=== PATIENT | male | born 1930 | race Caucasian/White ===

== ENCOUNTER → 2017-11-02 | Outpatient (CLI) | payer OTHER ==
[2015-12-19 03:03] VITALS: BP 157/72
[2017-11-02 19:25] LABS: BASOPHILS % (AUTO) 0.7 % (0.2-1.0); EOSINOPHILS % (AUTO) 1.2 % (0.9-2.9); HEMATOCRIT 23.2 % (42.0-54.0); HEMOGLOBIN 8.3 g/dL (13.5-18.0); LYMPHOCYTES % (AUTO) 54.3 % (21.0-51.0); MEAN CORPUSCULAR HEMOGLOBIN 34.7 pg (27.0-34.0); MEAN CORPUSCULAR HGB CONC 35.8 g/dL (33.0-35.0); MEAN CORPUSCULAR VOLUME 96.9 fL (80.0-100.0); MEAN PLATELET VOLUME 8.1 fL (7.4-11.0); MONOCYTES # (AUTO) 0.1 x10^3/uL (0.3-0.8); MONOCYTES % (AUTO) 5.1 % (0.0-13.0); NEUTROPHILS # (AUTO) 0.7 x10^3/uL (2.2-4.8); NEUTROPHILS % (AUTO) 38.7 % (42.0-75.0); PLATELET COUNT 37 X10^3/uL (150.0-450.0); RED CELL DISTRIBUTION WIDTH 15.8 % (11.6-16.5)
[2017-11-02 19:28] LABS: WHITE BLOOD COUNT 1.9 X10^3/uL (3.6-10.0)
[2017-11-02 20:17] LABS: BURR CELLS PRESENT; HYPOCHROMASIA SLIGHT; PLATELET MORPHOLOGY COMMENT NORMAL (NORMAL)
== END ==
LOC: LAB 18:05
PROVIDERS: ATTEND Internal Medicine Medical Oncology
DX: D46.9 Myelodysplastic syndrome, unspecified (principal)
CPT/HCPCS: 36415; 85025

== ENCOUNTER → 2017-11-20 | Outpatient (CLI) | payer OTHER ==
[2015-12-19 03:03] VITALS: BP 157/72
[2017-11-20 13:00] LABS: BASOPHILS % (AUTO) 0.6 % (0.2-1.0); EOSINOPHILS % (AUTO) 0.6 % (0.9-2.9); LYMPHOCYTES # (AUTO) 0.6 X10^3/uL (1.3-2.9); LYMPHOCYTES % (AUTO) 59.5 % (21.0-51.0); MEAN CORPUSCULAR HEMOGLOBIN 32.8 pg (27.0-34.0); MEAN CORPUSCULAR HGB CONC 35.9 g/dL (33.0-35.0); MEAN CORPUSCULAR VOLUME 91.4 fL (80.0-100.0); MEAN PLATELET VOLUME 8.1 fL (7.4-11.0); MONOCYTES # (AUTO) 0.1 x10^3/uL (0.3-0.8); MONOCYTES % (AUTO) 5.4 % (0.0-13.0); NEUTROPHILS # (AUTO) 0.4 x10^3/uL (2.2-4.8); NEUTROPHILS % (AUTO) 33.9 % (42.0-75.0); PLATELET COUNT 23 X10^3/uL (150.0-450.0); RED BLOOD COUNT 2.13 X10^6/uL (4.7-6.0); RED CELL DISTRIBUTION WIDTH 17.2 % (11.6-16.5)
[2017-11-20 13:09] LABS: ALANINE AMINOTRANSFERASE 16 Units/L (12-78); ALBUMIN 3.3 g/dL (3.4-5.0); ALKALINE PHOSPHATASE 122 Units/L (46-116); ASPARTATE AMINO TRANSFERASE 12 Units/L (15-37); BLOOD UREA NITROGEN 23 mg/dL (7-18); CALCIUM 8.3 mg/dL (8.5-10.1); CARBON DIOXIDE 25.4 mmol/L (21-32); CHLORIDE 106 mmol/L (98-107); COR CA(FOR HYPOALB) 8.9 mg/dL (8.5-10.1); CREATININE 1.33 mg/dL (0.70-1.30); SODIUM 135 mmol/L (136-145); TOTAL PROTEIN 6.9 g/dL (6.4-8.2); eGFR BLACK RACES > 60 (>60); eGFR NON BLACK RACES 54 (>60)
[2017-11-20 13:51] LABS: HEMATOCRIT 19.5 % (42.0-54.0)
[2017-11-20 13:52] LABS: ANISOCYTOSIS 1+; HYPOCHROMASIA 1+; PLATELET MORPHOLOGY COMMENT NORMAL (NORMAL)
== END ==
LOC: LAB 12:28
PROVIDERS: ATTEND Internal Medicine Medical Oncology
DX: D46.9 Myelodysplastic syndrome, unspecified (principal)
CPT/HCPCS: 36415; 80053; 85025

== ENCOUNTER → 2017-11-23 | Outpatient (CLI) | payer OTHER ==
[2015-12-19 03:03] VITALS: BP 157/72
[2017-11-23 10:18] LABS: BASOPHILS % (AUTO) 0.3 % (0.2-1.0); EOSINOPHILS % (AUTO) 0.7 % (0.9-2.9); LYMPHOCYTES # (AUTO) 0.5 X10^3/uL (1.3-2.9); LYMPHOCYTES % (AUTO) 61.1 % (21.0-51.0); MEAN CORPUSCULAR HEMOGLOBIN 33.1 pg (27.0-34.0); MEAN CORPUSCULAR HGB CONC 36.1 g/dL (33.0-35.0); MEAN CORPUSCULAR VOLUME 91.6 fL (80.0-100.0); MONOCYTES # (AUTO) 0.1 x10^3/uL (0.3-0.8); MONOCYTES % (AUTO) 8.1 % (0.0-13.0); NEUTROPHILS # (AUTO) 0.2 x10^3/uL (2.2-4.8); NEUTROPHILS % (AUTO) 29.8 % (42.0-75.0); RED BLOOD COUNT 1.94 X10^6/uL (4.7-6.0); RED CELL DISTRIBUTION WIDTH 16.7 % (11.6-16.5)
[2017-11-23 10:37] LABS: HEMOGLOBIN 6.4 g/dL (13.5-18.0); WHITE BLOOD COUNT 0.8 X10^3/uL (3.6-10.0)
[2017-11-23 10:38] LABS: HEMATOCRIT 17.7 % (42.0-54.0)
[2017-11-23 10:39] LABS: PLATELET COUNT 14 X10^3/uL (150.0-450.0)
[2017-11-23 10:40] LABS: HYPOCHROMASIA 1+; PLATELET MORPHOLOGY COMMENT NORMAL (NORMAL)
== END ==
LOC: LAB 09:43
PROVIDERS: ATTEND Internal Medicine Medical Oncology
DX: D46.9 Myelodysplastic syndrome, unspecified (principal)
CPT/HCPCS: 36415; 85025

== ENCOUNTER → 2017-11-27 | Outpatient (CLI) | payer OTHER ==
[2015-12-19 03:03] VITALS: BP 157/72
[2017-11-27 10:09] LABS: ALANINE AMINOTRANSFERASE 12 Units/L (12-78); ALBUMIN 3.2 g/dL (3.4-5.0); ALKALINE PHOSPHATASE 121 Units/L (46-116); ASPARTATE AMINO TRANSFERASE 7 Units/L (15-37); BLOOD UREA NITROGEN 25 mg/dL (7-18); CALCIUM 8.1 mg/dL (8.5-10.1); CHLORIDE 107 mmol/L (98-107); COR CA(FOR HYPOALB) 8.7 mg/dL (8.5-10.1); COR NA(FOR HYPERGLY) 140 mmol/L (136-145); CREATININE 1.33 mg/dL (0.70-1.30); SODIUM 140 mmol/L (136-145); TOTAL PROTEIN 6.7 g/dL (6.4-8.2); eGFR BLACK RACES > 60 (>60); eGFR NON BLACK RACES 54 (>60)
[2017-11-27 10:10] LABS: BASOPHILS % (AUTO) 0.4 % (0.2-1.0); HEMATOCRIT 21.7 % (42.0-54.0); HEMOGLOBIN 7.8 g/dL (13.5-18.0); LYMPHOCYTES # (AUTO) 0.5 X10^3/uL (1.3-2.9); LYMPHOCYTES % (AUTO) 67.1 % (21.0-51.0); MEAN CORPUSCULAR HGB CONC 35.7 g/dL (33.0-35.0); MEAN CORPUSCULAR VOLUME 89.5 fL (80.0-100.0); MEAN PLATELET VOLUME 8.6 fL (7.4-11.0); MONOCYTES # (AUTO) 0 x10^3/uL (0.3-0.8); MONOCYTES % (AUTO) 6.4 % (0.0-13.0); NEUTROPHILS # (AUTO) 0.2 x10^3/uL (2.2-4.8); NEUTROPHILS % (AUTO) 25.1 % (42.0-75.0); RED BLOOD COUNT 2.43 X10^6/uL (4.7-6.0); RED CELL DISTRIBUTION WIDTH 17.2 % (11.6-16.5)
[2017-11-27 10:25] LABS: WHITE BLOOD COUNT 0.8 X10^3/uL (3.6-10.0)
[2017-11-27 10:26] LABS: PLATELET COUNT 16 X10^3/uL (150.0-450.0)
[2017-11-27 10:41] LABS: HYPOCHROMASIA 1+; PLATELET MORPHOLOGY COMMENT NORMAL (NORMAL)
== END ==
LOC: LAB 09:28
PROVIDERS: ATTEND Internal Medicine Medical Oncology
DX: D46.9 Myelodysplastic syndrome, unspecified (principal)
CPT/HCPCS: 36415; 80053; 85025

== ENCOUNTER → 2018-01-18 | Outpatient (CLI) | payer OTHER ==
[2015-12-19 03:03] VITALS: BP 157/72
[2018-01-18 12:48] LABS: BASOPHILS % (AUTO) 1.1 % (0.2-1.0); EOSINOPHILS % (AUTO) 1.8 % (0.9-2.9); HEMATOCRIT 23.3 % (42.0-54.0); HEMOGLOBIN 8.2 g/dL (13.5-18.0); LYMPHOCYTES % (AUTO) 75.6 % (21.0-51.0); MEAN CORPUSCULAR HEMOGLOBIN 28.5 pg (27.0-34.0); MEAN CORPUSCULAR HGB CONC 35.2 g/dL (33.0-35.0); MONOCYTES # (AUTO) 0 x10^3/uL (0.3-0.8); MONOCYTES % (AUTO) 2.3 % (0.0-13.0); NEUTROPHILS # (AUTO) 0.2 x10^3/uL (2.2-4.8); NEUTROPHILS % (AUTO) 19.2 % (42.0-75.0); PLATELET COUNT 38 X10^3/uL (150.0-450.0); RED BLOOD COUNT 2.88 X10^6/uL (4.7-6.0); RED CELL DISTRIBUTION WIDTH 18.8 % (11.6-16.5)
[2018-01-18 13:02] LABS: ALANINE AMINOTRANSFERASE 17 Units/L (12-78); ALBUMIN 3.3 g/dL (3.4-5.0); ALKALINE PHOSPHATASE 135 Units/L (46-116); ASPARTATE AMINO TRANSFERASE 9 Units/L (15-37); BLOOD UREA NITROGEN 26 mg/dL (7-18); CALCIUM 8.5 mg/dL (8.5-10.1); CARBON DIOXIDE 27.5 mmol/L (21-32); CHLORIDE 105 mmol/L (98-107); COR CA(FOR HYPOALB) 9.1 mg/dL (8.5-10.1); CREATININE 1.26 mg/dL (0.70-1.30); SODIUM 141 mmol/L (136-145); TOTAL PROTEIN 7.2 g/dL (6.4-8.2); eGFR BLACK RACES > 60 (>60); eGFR NON BLACK RACES 58 (>60)
[2018-01-18 13:03] LABS: WHITE BLOOD COUNT 1.3 X10^3/uL (3.6-10.0)
[2018-01-18 13:23] LABS: ANISOCYTOSIS 1+; HYPOCHROMASIA 3+; PLATELET MORPHOLOGY COMMENT NORMAL (NORMAL)
== END ==
LOC: LAB 12:27
PROVIDERS: ATTEND Internal Medicine Hematology & Oncology
DX: D46.9 Myelodysplastic syndrome, unspecified (principal)
CPT/HCPCS: 36415; 80053; 85025

== ENCOUNTER 2018-10-28 21:14 | Inpatient (IN) ==
[2018-10-28] MEDS ORDERED: TESSALON PERLES PO PRN (22:03)
[2018-10-28 22:56] LABS: BASOPHILS % (AUTO) 0.4 % (0.2-1.0); EOSINOPHILS % (AUTO) 0.1 % (0.9-2.9); LYMPHOCYTES # (AUTO) 0.6 X10^3/uL (1.3-2.9); LYMPHOCYTES % (AUTO) 46.6 % (21.0-51.0); MEAN CORPUSCULAR HEMOGLOBIN 30.7 pg (27.0-34.0); MEAN CORPUSCULAR HGB CONC 35.2 g/dL (33.0-35.0); MEAN CORPUSCULAR VOLUME 87.1 fL (80.0-100.0); MEAN PLATELET VOLUME 10.1 fL (7.4-11.0); MONOCYTES # (AUTO) 0.5 x10^3/uL (0.3-0.8); MONOCYTES % (AUTO) 37.5 % (0.0-13.0); NEUTROPHILS # (AUTO) 0.2 x10^3/uL (2.2-4.8); NEUTROPHILS % (AUTO) 15.4 % (42.0-75.0); RED BLOOD COUNT 2.13 X10^6/uL (4.7-6.0); RED CELL DISTRIBUTION WIDTH 15.5 % (11.6-16.5)
[2018-10-28] MEDS ORDERED: LEVAQUIN TAB 500 MG PO SCH (23:00)
[2018-10-28 23:11] LABS: WHITE BLOOD COUNT 1.2 X10^3/uL (3.6-10.0)
[2018-10-28 23:12] LABS: HEMATOCRIT 18.6 % (42.0-54.0); HEMOGLOBIN 6.5 g/dL (13.5-18.0)
[2018-10-28 23:13] LABS: PLATELET COUNT 8 X10^3/uL (150.0-450.0)
[2018-10-28 23:23] LABS: CALCIUM 7.7 mg/dL (8.5-10.1); CREATININE 2.39 mg/dL (0.70-1.30)
[2018-10-29] MEDS: LIPITOR TAB 40 MG PO SCH ×2 (00:10→21:52)
[2018-10-29] MEDS: PATIENT'S HOME MEDICATION PO SCH ×2 (00:10→21:53)
[2018-10-29] MEDS: K-DUR TAB 20 MEQ PO SCH ×3 (00:10→21:47)
[2018-10-29 01:16] LABS: ALBUMIN 2.2 g/dL (3.4-5.0); COR CA(FOR HYPOALB) 9.1 mg/dL (8.5-10.1); TOTAL PROTEIN 7.2 g/dL (6.4-8.2)
[2018-10-29] MEDS ORDERED: TYLENOL 325 MG TAB PO ONE (02:01)
[2018-10-29] MEDS: TYLENOL 325 MG TAB PO PRN ×3 (02:09→23:29)
[2018-10-29] MEDS ORDERED: NS 250 ML IV 250 ML IV ONE ×2 (02:47→08:24)
[2018-10-29 03:00] LABS: BAND NEUTROPHILS % 1 % (0-10)
[2018-10-29 03:01] LABS: PLATELET MORPHOLOGY COMMENT NORMAL (NORMAL)
[2018-10-29 03:04] LABS: HYPOCHROMASIA 1+
[2018-10-29] MEDS: TAB-A-VITE PO SCH (08:13)
[2018-10-29] MEDS: TOPROL XL PO SCH (08:13)
[2018-10-29] MEDS: PROTONIX INJ 40 MG VIAL IVP SCH (08:13)
[2018-10-29] MEDS ORDERED: PATIENT'S HOME MEDICATION PO SCH (09:00)
[2018-10-29] MEDS ORDERED: LASIX IVP ONE (11:31)
[2018-10-29] MEDS: ALBUMIN HUMAN 25%- 100 ML 100 ML IV SCH (12:10)
[2018-10-29 12:27] LABS: LYMPHOCYTES # (AUTO) 0.3 X10^3/uL (1.3-2.9); NEUTROPHILS # (AUTO) 0.2 x10^3/uL (2.2-4.8)
[2018-10-29 12:33] LABS: BASOPHILS % (AUTO) 0.5 % (0.2-1.0); EOSINOPHILS % (AUTO) 0.3 % (0.9-2.9); HEMATOCRIT 22.7 % (42.0-54.0); LYMPHOCYTES % (AUTO) 30.9 % (21.0-51.0); MEAN CORPUSCULAR HEMOGLOBIN 30.7 pg (27.0-34.0); MEAN CORPUSCULAR HGB CONC 35.2 g/dL (33.0-35.0); MEAN CORPUSCULAR VOLUME 87.3 fL (80.0-100.0); MEAN PLATELET VOLUME 11.5 fL (7.4-11.0); MONOCYTES # (AUTO) 0.5 x10^3/uL (0.3-0.8); MONOCYTES % (AUTO) 49.2 % (0.0-13.0); NEUTROPHILS % (AUTO) 19.1 % (42.0-75.0); RED CELL DISTRIBUTION WIDTH 15.7 % (11.6-16.5)
[2018-10-29 12:35] LABS: PLATELET COUNT 2 X10^3/uL (150.0-450.0); WHITE BLOOD COUNT 1.1 X10^3/uL (3.6-10.0)
[2018-10-29 12:40] LABS: CALCIUM 8.1 mg/dL (8.5-10.1); CARBON DIOXIDE 22.7 mmol/L (21-32); COR CA(FOR HYPOALB) 9.7 mg/dL (8.5-10.1); CREATININE 2.18 mg/dL (0.70-1.30); TOTAL PROTEIN 6.7 g/dL (6.4-8.2)
[2018-10-29] MEDS ORDERED: PHARMACY CONSULT - TPN XX SCH (13:00)
[2018-10-29] MEDS ORDERED: DEXTROSE 10% 1,000 ML IV PRN (15:05)
[2018-10-29 15:25] LABS: PHOSPHORUS 2.8 mg/dL (2.6-4.7)
[2018-10-29] MEDS: CLINIMIX 4.25 %/10 % 1,000 ML with MVI INJ (ADULT) 10 ML, TRACE ELEMENTS INJ 10 ML, DRU... IV SCH ×3 (16:04)
[2018-10-29] MEDS: MAGNESIUM SULFATE 1 GRAM/100 mL PREMIX 1 GM/100 ML BAG IV PRN ×3 (16:12→17:57)
--- NOTE | 2018-10-29 19:06 | DR.H&P ---
H&P - History & Physical for Day of: H&P Date: 10/28/18 - Chief Complaint Chief Complaint: WEAKNESS, ANOREXIA - History of Present Illness History of Present Illness: IS A 88 YEAR OLD PATIENT OF OURS. HE PRESENTS TO THE HOSPITAL A DIRECT ADMISSION TO THE HOSPITAL FOR PANCYTOPENIA, WEAKNESS, AND ANOREXIA. PATIENTS SPOUSE REPORTS THAT HE IS GETTING WEAKER AND IS UNABLE TO WALK DUE TO WEAKNESS. SHE REPORTS THAT HE HAS HAD GENERALIZED SWELLING AND IS UNABLE TO EAT OR DRINK ANYTHING FOR THE PAST TWO DAYS. 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 ON ARRIVAL, VITALS WERE 100.0-96-27-94%-141/64. LABS WERE OBTAINED. ABNORMAL LAB VALUES INCLUDE THE FOLLOWING: WBC 1.2, RBC 2.13, HGB 6.5, HCT 18.6, PLT COUNT 8, BUN 77, CREATININE 2.39, GLUCOSE 126, CALCIUM 7.7, AST 74, ALT 79, ALK PHOS 159, ALBUMIN 2.2, GLOBULIN 5.0. WE PLAN TO TRANSFUSE TWO UNITS OF PACKED RED BLOOD CELLS. OTHERWISE, WE WILL CONTINUE HIS HOME MEDICATIONS AND CURRENT PLAN OF CARE. WE WILL FOLLOW UP WITH AM LABS AND CONTINUE TO MONITOR. - Past Medical History Past Medical History: Dyslipidemia, GERD, Hypertension, CO Additional Medical History: LEUKEMIA, BLADDER CANCER - Past Surgical History Surgical History: Angioplasty/Stents, Ortho Surgery - Family History Family Medical History: Cancer, CO, Hypertension - Social History Does patient currently use any type of tobacco product: No Have you used tobacco products in the last 12 months: No Type of Tobacco Use: None Does any household member use tobacco: No Alcohol Use: None Drug Use: None - Medications Home Medications: No Known Drug Allergies [NKDA] Allergy (Verified 12/01/17 10:33) CONTINUE taking the following medications levofloxacin 500 mg PO DAILY 10/28/18 [History] olmesartan 5 mg PO HS 10/28/18 [History] pantoprazole 40 mg PO DAILY 10/28/18 [History] potassium chloride 20 meq PO BID 10/28/18 [History] - Review of Systems Constitutional: See HPI, Weakness, Other (DECREASED APPETITE ) Eyes: No Symptoms Reported ENT: No Symptoms Reported Respiratory: No Symptoms Reported Cardiovascular: Edema (GENERALIZED SWELLING ) Gastrointestinal: No Symptoms Reported Genitourinary: No Symptoms Reported Musculoskeletal: See HPI Skin: No Symptoms Reported Neurological: See HPI, Weakness - Physical Exam Vital Signs: Temperature 98.3 F Pulse Rate [Left Radial] 107 Pulse Rate 93 Respiratory Rate 30 Blood Pressure [Left Arm] 122/56 Blood Pressure [Right Arm] 148/65 Blood Pressure 125/60 O2 Sat by Pulse Oximetry 96 Oriented: Normal Eyes: Normal Ear: Normal Nose: Normal Throat: Normal Respiratory: Diminished Throughout Cardiovascular: Normal : Normal Auscultation: Bowel Sounds: Normal Palpation: Normal Tenderness: Normal Skin: Decreased Turgur, Bruising Musculoskeletal: Normal Psychiatric: Normal Mood Description: Calm Affect: Normal Speech Pattern: Clear - Assessment/Plan (1) Pancytopenia Status: Acute Plan: TRANSFUSE 2 UNITS PRBC, CONTINUE TO MONITOR (2) Anemia Qualifiers: Anemia type: unspecified type Qualified Code(s): D64.9 - Anemia, unspecified Status: Acute Plan: TRANSFUSE 2 UNITS PRBC, CONTINUE TO MONITOR (3) Weakness Status: Acute (4) Anorexia Status: Acute - Allergies Allergies/Adverse Reactions: Allergies Allergy/AdvReac Type Severity Reaction Status Date / Time No Known Drug Allergies Allergy Verified 12/01/17 10:33 [NKDA]
[2018-10-29] MEDS: HumuLIN R SUBCUT PRN (19:37)
[2018-10-29] MEDS ORDERED: NS 50 ML IV 0 ML IV ONE (19:53)
[2018-10-29] MEDS ORDERED: NS 100 ML IV 100 ML IV ONE (21:01)
[2018-10-29] MEDS: LEVAQUIN TAB 250 MG PO SCH (21:52)
[2018-10-29] MEDS ORDERED: RESTORIL CAP 15 MG PO PRN (22:56)
[2018-10-30 00:17] LABS: HEMOGLOBIN 7.4 g/dL (13.5-18.0)
[2018-10-30 00:26] LABS: HEMATOCRIT 20.9 % (42.0-54.0)
[2018-10-30] MEDS: CLINIMIX 4.25 %/10 % 1,000 ML with MVI INJ (ADULT) 10 ML, TRACE ELEMENTS INJ 10 ML, DRU... IV SCH ×6 (03:22→16:08)
[2018-10-30 06:13] LABS: PREALBUMIN 9.7 mg/dL (18-35.7)
[2018-10-30 06:16] LABS: BASOPHILS % (AUTO) 0.2 % (0.2-1.0); EOSINOPHILS % (AUTO) 0.3 % (0.9-2.9); HEMATOCRIT 23.8 % (42.0-54.0); HEMOGLOBIN 8.3 g/dL (13.5-18.0); LYMPHOCYTES # (AUTO) 0.4 X10^3/uL (1.3-2.9); LYMPHOCYTES % (AUTO) 25.4 % (21.0-51.0); MEAN CORPUSCULAR HEMOGLOBIN 30.7 pg (27.0-34.0); MEAN CORPUSCULAR VOLUME 87.8 fL (80.0-100.0); MEAN PLATELET VOLUME 9.1 fL (7.4-11.0); MONOCYTES # (AUTO) 1.1 x10^3/uL (0.3-0.8); MONOCYTES % (AUTO) 67.8 % (0.0-13.0); NEUTROPHILS # (AUTO) 0.1 x10^3/uL (2.2-4.8); NEUTROPHILS % (AUTO) 6.3 % (42.0-75.0); PLATELET COUNT 36 X10^3/uL (150.0-450.0); RED BLOOD COUNT 2.71 X10^6/uL (4.7-6.0); RED CELL DISTRIBUTION WIDTH 15.7 % (11.6-16.5)
[2018-10-30 06:18] LABS: ALBUMIN 2.3 g/dL (3.4-5.0); CALCIUM 8.2 mg/dL (8.5-10.1); CARBON DIOXIDE 25.8 mmol/L (21-32); COR CA(FOR HYPOALB) 9.6 mg/dL (8.5-10.1); CREATININE 2.02 mg/dL (0.70-1.30); MAGNESIUM 1.6 mg/dL (1.7-2.9)
[2018-10-30 06:28] LABS: WHITE BLOOD COUNT 1.6 X10^3/uL (3.6-10.0)
[2018-10-30 07:00] LABS: BAND NEUTROPHILS % 12 % (0-10)
[2018-10-30 07:02] LABS: PLATELET MORPHOLOGY COMMENT NORMAL (NORMAL)
[2018-10-30 07:04] LABS: HYPOCHROMASIA SLIGHT
[2018-10-30 07:05] LABS: ANISOCYTOSIS 1+
[2018-10-30] MEDS: TOPROL XL PO SCH (08:13)
[2018-10-30] MEDS: TAB-A-VITE PO SCH (08:13)
[2018-10-30] MEDS: K-DUR TAB 20 MEQ PO SCH ×2 (08:14→21:02)
[2018-10-30] MEDS: TYLENOL 325 MG TAB PO PRN ×4 (08:25→17:35)
[2018-10-30] MEDS: ALBUMIN HUMAN 25%- 100 ML 100 ML IV SCH (08:27)
[2018-10-30] MEDS: PROTONIX INJ 40 MG VIAL IVP SCH (08:27)
--- NOTE | 2018-10-30 08:33 | PCM.PROG ---
Progress Note - Progress Note for Day of Date of Exam: 10/29/18 - Subjective Subjective: WAS ADMITTED FOR PANCYTOPENIA, GENERALIZED WEAKNESS, ANOREXIA, AND ANEMIA. TODAY, HE IS ALERT AND ORIENTED, LYING IN BED ON MORNING ROUNDS. HE CONTINUES WITH GENERALIZED WEAKNESS AND DECREASED APPETITE. HE HAS A HISTORY OF BLADDER CANCER AND LEUKEMIA. HE IS CURRENTLY RECEIVING HIS 2ND UNIT OF PACKED RED BLOOD CELLS. HIS VITALS THIS MORNING ARE 98.7-24-99-94%-148/65. LABS WERE OBTAINED. ABNORMAL LAB VALUES INCLUDE THE FOLLOWING: WBC 1.1, RBC 2.60, HGB 8.0, HCT 22.7, PLT COUNT 2, BUN 70, CREATININE 2.18, GLUCOSE 155, CALCIUM 8.1, MAGNESIUM 1.0, TOTAL PROTEIN 1.20, AST 42, ALK PHOS 147, ALBUMIN 2.0, GLOBULIN 4.7. WE WILL GIVE HIM LASIX 20MG IV X 1 DOSE AFTER THIS UNIT OF BLOOD. WE WILL THEN TRANSFUSE HIM WITH TWO SUPERPACKS OF PLATELETS. WE WILL ALSO START TPN AND ALBUMIN 25% IV DAILY. WE WILL MONITOR HIS HEMOGLOBIN AND HEMATOCRIT. OTHERWISE, WE WILL FOLLOW UP WITH AM LABS AND CONTINUE TO MONITOR. - Past Medical Family Social History Past Med/Fam/Surg Hx: No changes since H&P Allergies: Allergies No Known Drug Allergies [NKDA] Allergy (Verified 12/01/17 10:33) - Review of Systems ROS: No change since H&P - Vital Signs and I&O's Vital Signs: Temperature 98.2 F Pulse Rate [Left Radial] 113 Pulse Rate 93 Respiratory Rate 38 Blood Pressure [Left Arm] 140/74 Blood Pressure [Right Arm] 151/67 Blood Pressure 125/60 O2 Sat by Pulse Oximetry 95 Intake and Output: Intake & Output 10/27/18 10/28/18 10/29/18 10/30/18 11:59 11:59 11:59 11:59 Intake Total 907 / 907 2320 / 2320 Output Total 650 / 650 1850 / 1850 Balance 257 / 257 470 / 470 - Physical Exam Oriented: Normal Eyes: Normal Ear: Normal Nose: Normal Throat: Normal Cardiovascular: Normal : Normal Auscultation: Bowel Sounds: Normal Palpation: Normal Tenderness: Normal Skin: Decreased Turgur, Bruising Musculoskeletal: Normal Psychiatric: Normal Mood Description: Calm Affect: Normal Speech Pattern: Clear - Laboratory and Diagnostics Result Diagrams: 10/30/18 05:35 10/30/18 05:35 Labs: Laboratory WBC 1.6 X10^3/uL (3.6-10.0) L* 10/30/18 05:35 RBC 2.71 X10^6/uL (4.7-6.0) L 10/30/18 05:35 Hgb 8.3 g/dL (13.5-18.0) L 10/30/18 05:35 Hct 23.8 % (42.0-54.0) L 10/30/18 05:35 MCV 87.8 fL (80.0-100.0) 10/30/18 05:35 MCH 30.7 pg (27.0-34.0) 10/30/18 05:35 MCHC 35.0 g/dL (33.0-35.0) 10/30/18 05:35 RDW 15.7 % (11.6-16.5) 10/30/18 05:35 Plt Count 36 X10^3/uL (150.0-450.0) L 10/30/18 05:35 Plt Count Comment Decreased (ADEQUATE) 10/30/18 05:35 MPV 9.1 fL (7.4-11.0) 10/30/18 05:35 Neut % (Auto) 6.3 % (42.0-75.0) L 10/30/18 05:35 Lymph % (Auto) 25.4 % (21.0-51.0) 10/30/18 05:35 [place] % (Auto) 67.8 % (0.0-13.0) H 10/30/18 05:35 Eos % (Auto) 0.3 % (0.9-2.9) L 10/30/18 05:35 Baso % (Auto) 0.2 % (0.2-1.0) 10/30/18 05:35 Neut # (Auto) 0.1 x10^3/uL (2.2-4.8) L 10/30/18 05:35 Lymph # (Auto) 0.4 X10^3/uL (1.3-2.9) L 10/30/18 05:35 [place] # (Auto) 1.1 x10^3/uL (0.3-0.8) H 10/30/18 05:35 Eos # (Auto) 0.0 x10^3/uL (0.0-0.2) 10/30/18 05:35 Baso # (Auto) 0.0 X10^3/uL (0.0-0.1) 10/30/18 05:35 Absolute Nucleated RBC 0.8 /100WBC 10/30/18 05:35 Total Counted 50 10/30/18 05:35 Neutrophils % (Manual) 14 % (39-76) L 10/30/18 05:35 Band Neutrophils % 12 % (0-10) H 10/30/18 05:35 Lymphocytes % (Manual) 38 % (13-43) 10/30/18 05:35 Monocytes % (Manual) 36 % (4-9) H 10/30/18 05:35 Plt Morphology Comment Normal (NORMAL) 10/30/18 05:35 RBC Morphology Abnormal (NORMAL) 10/30/18 05:35 Dimorphic RBCs Noted 10/30/18 05:35 Hypochromasia Slight A 10/30/18 05:35 Anisocytosis 1+ A 10/30/18 05:35 Sodium 139 mmol/L (136-145) 10/30/18 05:35 Corrected Sodium 140 mmol/L (136-145) 10/30/18 05:35 Potassium 3.8 mmol/L (3.5-5.1) 10/30/18 05:35 Chloride 103 mmol/L (98-107) 10/30/18 05:35 Carbon Dioxide 25.8 mmol/L (21-32) 10/30/18 05:35 BUN 68 mg/dL (7-18) H 10/30/18 05:35 Creatinine 2.02 mg/dL (0.70-1.30) H 10/30/18 05:35 Est GFR (MDRD) Af Amer 40 (>60) L 10/30/18 05:35 Est GFR (MDRD) Non-Af 33 (>60) L 10/30/18 05:35 Glucose 147 mg/dL (65-99) H 10/30/18 05:35 POC Glucose (mg/dL) 158 mg/dL (65-99) H 10/30/18 03:22 Calcium 8.2 mg/dL (8.5-10.1) L 10/30/18 05:35 Corrected Calcium 9.6 mg/dL (8.5-10.1) 10/30/18 05:35 Phosphorus 2.8 mg/dL (2.6-4.7) 10/29/18 12:16 Magnesium 1.6 mg/dL (1.7-2.9) L 10/30/18 05:35 Total Bilirubin 1.40 mg/dL (0.2-1.0) H 10/30/18 05:35 AST 39 Units/L (15-37) H 10/30/18 05:35 ALT 53 Units/L (12-78) 10/30/18 05:35 Alkaline Phosphatase 162 Units/L (46-116) H 10/30/18 05:35 Total Protein 7.0 g/dL (6.4-8.2) 10/30/18 05:35 Albumin 2.3 g/dL (3.4-5.0) L 10/30/18 05:35 Globulin 4.7 g/dL (2.5-4.5) H 10/30/18 05:35 Albumin/Globulin Ratio 0.5 Ratio (1.1-2.1) L 10/30/18 05:35 Prealbumin 9.7 mg/dL (18-35.7) L 10/30/18 05:35 Triglycerides 78 mg/dL (0-150) 10/29/18 12:16 Blood Type O POSITIVE 10/28/18 22:20 Antibody Screen Negative 10/28/18 22:20 Crossmatch See Detail 10/28/18 22:20 - Plan (1) Pancytopenia Status: Acute Plan: TRANSFUSE 2 UNITS PRBC, CONTINUE TO MONITOR (2) Anemia Status: Acute Qualifiers: Anemia type: unspecified type Qualified Code(s): D64.9 - Anemia, unspecified Plan: TRANSFUSE 2 UNITS PRBC, TRANSFUSE 2 SUPERPACKS OF PLATELETS, CONTINUE TO MONITOR (3) Weakness Status: Acute (4) Anorexia Status: Acute Plan: TPN, ALBUMIN 25% IV DAILY, CONTINUE TO MONITOR
[2018-10-30] MEDS ORDERED: PROCRIT or EPOGEN SC ONE (10:07)
[2018-10-30] MEDS ORDERED: PHARMACY CONSULT - DOSE _____ XX SCH (11:00)
[2018-10-30] MEDS ORDERED: NS 250 ML IV 250 ML IV ONE (11:27)
--- NOTE | 2018-10-30 12:28 | RAD ---
HISTORY: Short of breath pancytopenia Study: One-view portable chest Comparison: One-view portable chest 12/19/2015 Technique: AP portable upright chest Findings: EKG leads overlie the thorax. There are sternotomy wires and multiple surgical clips from probable CABG surgery. The heart size is normal there are interstitial infiltrates left upper lobe and mixed interstitial alveolar infiltrates right lower lobe that are new from the prior study of 12/19/2015. Findings on may be pneumonia or pulmonary edema. Again the heart is normal in size there are no pleural effusions and no significant vascular congestion. IMPRESSION: 1. New interstitial infiltrates left upper lobe mixed interstitial alveolar infiltrate right lower lobe differential includes pulmonary edema versus pneumonia. These are new from the prior chest film of 12/19/2015. 2. Status post CABG surgery but heart size is normal and vascularity is normal and no pleural effusions are observed. Reported By:
[2018-10-30] MEDS ORDERED: LASIX ONE (13:07)
[2018-10-30] MEDS ORDERED: LASIX IVP ONE ×3 (13:20→21:40)
[2018-10-30] MEDS: ZOSYN VIAL 2.25 GRAMS 2.25 G in NS 100 ML IV + SPIKE MINIBAG* 100 ML IV SCH ×2 (14:00→22:20)
[2018-10-30] MEDS ORDERED: DRUG FILTER EXTENSION SET ONE (15:10)
[2018-10-30] MEDS: HumuLIN R SUBCUT PRN (16:08)
[2018-10-30] MEDS: MAGNESIUM SULFATE 1 GRAM/100 mL PREMIX 1 GM/100 ML BAG IV PRN ×2 (17:40→18:48)
[2018-10-30] MEDS ORDERED: MORPHINE SULFATE INJ 2 MG INJ IVP PRN (18:13)
[2018-10-30] MEDS ORDERED: MORPHINE SULFATE INJ 2 MG INJ ONE (18:17)
[2018-10-30] MEDS ORDERED: NS 100 ML IV 100 ML IV ONE ×2 (19:27→21:19)
--- NOTE | 2018-10-30 20:05 | PCM.PROG ---
Progress Note - Progress Note for Day of Date of Exam: 10/30/18 - Subjective Subjective: WAS ADMITTED FOR PANCYTOPENIA, GENERALIZED WEAKNESS, ANOREXIA, AND ANEMIA. TODAY, HE IS ALERT AND ORIENTED, LYING IN BED ON MORNING ROUNDS. HE CONTINUES WITH GENERALIZED WEAKNESS AND DECREASED APPETITE. HE HAS A HISTORY OF BLADDER CANCER AND LEUKEMIA. HE HAS RECEIVED TWO UNITS OF PACKED RED BLOOD CELLS AND TWO SUPERPACKS OF PLATELETS SINCE ADMISSION. HIS VITALS THIS MORNING ARE 102.9-592-74-100%VM-132/71. LABS WERE OBTAINED. ABNORMAL LAB VALUES INCLUDE THE FOLLOWING: WBC 1.6, RBC 2.71, HGB 8.3, HCT 23.8, BUN 68, CREATININE 2.02, GLUCOSE 147, CALCIUM 8.2, MAGNESIUM 1.6, TOTAL BILI 1.40, AST 39, ALK PHOS 162, ALBUMIN 2.3, GLOBULIN 4.7. WE OBTAINED A CHEST XRAY TODAY. IT REVEALED: New interstitial infiltrates left upper lobe mixed interstitial alveolar infiltrate right lower lobe differential includes pulmonary edema versus pneumonia. These are new from the prior chest film of 12/19/2015. Status post CABG surgery but heart size is normal and vascularity is normal and no pleural effusions are observed. TODAY, WE WILL TRANSFUSE TWO ADDITIONAL UNITS OF PACKED RED BLOOD CE LLS, ADD ZOSYN, OBTAIN BLOOD CULTURES, AND ENFORCE STRICT REVERSE PRECAUTIONS. WE WILL MONITOR HIS HEMOGLOBIN AND HEMATOCRIT. OTHERWISE, WE WILL FOLLOW UP WITH AM LABS AND CONTINUE TO MONITOR. - Past Medical Family Social History Past Med/Fam/Surg Hx: No changes since H&P Allergies: Allergies No Known Drug Allergies [NKDA] Allergy (Verified 12/01/17 10:33) - Review of Systems ROS: No change since H&P - Vital Signs and I&O's Vital Signs: Temperature 100.5 F Pulse Rate [Left Radial] 106 Pulse Rate 93 Respiratory Rate 32 Blood Pressure [Left Arm] 140/74 Blood Pressure [Right Arm] 111/55 Blood Pressure 125/60 O2 Sat by Pulse Oximetry 96 Intake and Output: Intake & Output 10/28/18 10/29/18 10/30/18 10/31/18 11:59 11:59 11:59 11:59 Intake Total 907 / 907 2320 / 2320 840 / 840 Output Total 650 / 650 1850 / 1850 300 / 300 Balance 257 / 257 470 / 470 540 / 540 - Physical Exam Oriented: Normal Eyes: Normal Ear: Normal Nose: Normal Throat: Normal Respiratory: Generalized, Diminished Cardiovascular: Normal : Normal Auscultation: Bowel Sounds: Normal Palpation: Normal Tenderness: Normal Skin: Decreased Turgur, Bruising Musculoskeletal: Normal Psychiatric: Normal Mood Description: Calm Affect: Normal Speech Pattern: Clear - Laboratory and Diagnostics Result Diagrams: 10/30/18 05:35 10/30/18 05:35 Labs: Laboratory WBC 1.6 X10^3/uL (3.6-10.0) L* 10/30/18 05:35 RBC 2.71 X10^6/uL (4.7-6.0) L 10/30/18 05:35 Hgb 8.3 g/dL (13.5-18.0) L 10/30/18 05:35 Hct 23.8 % (42.0-54.0) L 10/30/18 05:35 MCV 87.8 fL (80.0-100.0) 10/30/18 05:35 MCH 30.7 pg (27.0-34.0) 10/30/18 05:35 MCHC 35.0 g/dL (33.0-35.0) 10/30/18 05:35 RDW 15.7 % (11.6-16.5) 10/30/18 05:35 Plt Count 36 X10^3/uL (150.0-450.0) L 10/30/18 05:35 Plt Count Comment Decreased (ADEQUATE) 10/30/18 05:35 MPV 9.1 fL (7.4-11.0) 10/30/18 05:35 Neut % (Auto) 6.3 % (42.0-75.0) L 10/30/18 05:35 Lymph % (Auto) 25.4 % (21.0-51.0) 10/30/18 05:35 [place] % (Auto) 67.8 % (0.0-13.0) H 10/30/18 05:35 Eos % (Auto) 0.3 % (0.9-2.9) L 10/30/18 05:35 Baso % (Auto) 0.2 % (0.2-1.0) 10/30/18 05:35 Neut # (Auto) 0.1 x10^3/uL (2.2-4.8) L 10/30/18 05:35 Lymph # (Auto) 0.4 X10^3/uL (1.3-2.9) L 10/30/18 05:35 [place] # (Auto) 1.1 x10^3/uL (0.3-0.8) H 10/30/18 05:35 Eos # (Auto) 0.0 x10^3/uL (0.0-0.2) 10/30/18 05:35 Baso # (Auto) 0.0 X10^3/uL (0.0-0.1) 10/30/18 05:35 Absolute Nucleated RBC 0.8 /100WBC 10/30/18 05:35 Total Counted 50 10/30/18 05:35 Neutrophils % (Manual) 14 % (39-76) L 10/30/18 05:35 Band Neutrophils % 12 % (0-10) H 10/30/18 05:35 Lymphocytes % (Manual) 38 % (13-43) 10/30/18 05:35 Monocytes % (Manual) 36 % (4-9) H 10/30/18 05:35 Plt Morphology Comment Normal (NORMAL) 10/30/18 05:35 RBC Morphology Abnormal (NORMAL) 10/30/18 05:35 Dimorphic RBCs Noted 10/30/18 05:35 Hypochromasia Slight A 10/30/18 05:35 Anisocytosis 1+ A 10/30/18 05:35 Sodium 139 mmol/L (136-145) 10/30/18 05:35 Corrected Sodium 140 mmol/L (136-145) 10/30/18 05:35 Potassium 3.8 mmol/L (3.5-5.1) 10/30/18 05:35 Chloride 103 mmol/L (98-107) 10/30/18 05:35 Carbon Dioxide 25.8 mmol/L (21-32) 10/30/18 05:35 BUN 68 mg/dL (7-18) H 10/30/18 05:35 Creatinine 2.02 mg/dL (0.70-1.30) H 10/30/18 05:35 Est GFR (MDRD) Af Amer 40 (>60) L 10/30/18 05:35 Est GFR (MDRD) Non-Af 33 (>60) L 10/30/18 05:35 Glucose 147 mg/dL (65-99) H 10/30/18 05:35 POC Glucose (mg/dL) 158 mg/dL (65-99) H 10/30/18 03:22 Calcium 8.2 mg/dL (8.5-10.1) L 10/30/18 05:35 Corrected Calcium 9.6 mg/dL (8.5-10.1) 10/30/18 05:35 Phosphorus 2.8 mg/dL (2.6-4.7) 10/29/18 12:16 Magnesium 1.6 mg/dL (1.7-2.9) L 10/30/18 05:35 Total Bilirubin 1.40 mg/dL (0.2-1.0) H 10/30/18 05:35 AST 39 Units/L (15-37) H 10/30/18 05:35 ALT 53 Units/L (12-78) 10/30/18 05:35 Alkaline Phosphatase 162 Units/L (46-116) H 10/30/18 05:35 Total Protein 7.0 g/dL (6.4-8.2) 10/30/18 05:35 Albumin 2.3 g/dL (3.4-5.0) L 10/30/18 05:35 Globulin 4.7 g/dL (2.5-4.5) H 10/30/18 05:35 Albumin/Globulin Ratio 0.5 Ratio (1.1-2.1) L 10/30/18 05:35 Prealbumin 9.7 mg/dL (18-35.7) L 10/30/18 05:35 Triglycerides 78 mg/dL (0-150) 10/29/18 12:16 Blood Type O POSITIVE 10/28/18 22:20 Antibody Screen Negative 10/28/18 22:20 Crossmatch See Detail 10/28/18 22:20 - Plan (1) Pancytopenia Status: Acute Plan: TRANSFUSE 2 UNITS PRBC, REVERSE PRECAUTIONS, CONTINUE TO MONITOR (2) Pneumonia Status: Acute Qualifiers: Pneumonia type: due to unspecified organism Laterality: bilateral Lung location: unspecified part of lung Qualified Code(s): J18.9 - Pneumonia, unspecified organism Plan: FORTAZ IV, LEVAQUIN, RESPIRATORY TX, SUPPLEMENTAL OXYGEN, CONTINUE TO MONITOR (3) Anemia Status: Acute Qualifiers: Anemia type: unspecified type Qualified Code(s): D64.9 - Anemia, unspecified Plan: TRANSFUSE 2 UNITS PRBC, CONTINUE TO MONITOR (4) Weakness Status: Acute (5) Anorexia Status: Acute Plan: TPN, ALBUMIN 25% IV DAILY, CONTINUE TO MONITOR
[2018-10-30] MEDS: DUONEB 0.5 MG/3 MG NEB SCH (20:20)
[2018-10-30] MEDS ORDERED: SALINE 3% 15 ML NEB TX NEB ONE (20:23)
[2018-10-30] MEDS: PATIENT'S HOME MEDICATION PO SCH (21:00)
[2018-10-30] MEDS: LEVAQUIN TAB 250 MG PO SCH (21:02)
[2018-10-30] MEDS: LIPITOR TAB 40 MG PO SCH (21:03)
[2018-10-30] MEDS: DULCOLAX SUPPOSITORY 10 MG RECTAL ONE ×2 (21:03→23:25)
[2018-10-30] MEDS: MORPHINE SULFATE INJ 2 MG INJ IVP PRN (21:44)
[2018-10-30 23:19] LABS: BILIRUBIN,URINE NEGATIVE (NEGATIVE); BLOOD/HEMOGLOBIN,URINE 4+ (NEGATIVE); GLUCOSE, URINE NEGATIVE (NEGATIVE); KETONES,URINE NEGATIVE (NEGATIVE); LEUKOCYTE ESTERASE ,URINE NEGATIVE (NEGATIVE); NITRITES,URINE NEGATIVE (NEGATIVE); PROTEIN,URINE 3+ (NEGATIVE); UROBILINOGEN,URINE NORMAL (NORMAL)
[2018-10-30 23:26] LABS: APPEARANCE,URINE CLEAR (CLEAR); COLOR,URINE PALE YELLOW (YELLOW); RBC,URINE 30-50 /HPF (NONE SEEN)
[2018-10-30 23:27] LABS: AMORPHOUS SEDIMENT,UR TRACE /HPF (NEGATIVE); BACTERIA,URINE NEGATIVE /HPF (NEGATIVE); GRANULAR CASTS,URINE FEW /LPF (NEGATIVE); HYALINE CASTS, URINE FEW /LPF (NEGATIVE); SQUAMOUS EPITHELIAL CELL,UR NEGATIVE /HPF (NEGATIVE); YEAST,URINE MODERATE /HPF (NEGATIVE)
[2018-10-31] MEDS: MORPHINE SULFATE INJ 2 MG INJ IVP PRN ×7 (03:10→22:50)
[2018-10-31] MEDS: ZOSYN VIAL 2.25 GRAMS 2.25 G in NS 100 ML IV + SPIKE MINIBAG* 100 ML IV SCH ×3 (05:34→22:01)
[2018-10-31] MEDS: CLINIMIX 4.25 %/10 % 1,000 ML with MVI INJ (ADULT) 10 ML, TRACE ELEMENTS INJ 10 ML, DRU... IV SCH ×3 (05:34)
[2018-10-31 06:28] LABS: HEMOGLOBIN 8.6 g/dL (13.5-18.0); NEUTROPHILS # (AUTO) 0.2 x10^3/uL (2.2-4.8)
[2018-10-31 06:34] LABS: ALBUMIN 2.3 g/dL (3.4-5.0); CALCIUM 8.7 mg/dL (8.5-10.1); CARBON DIOXIDE 20.7 mmol/L (21-32); COR CA(FOR HYPOALB) 10.1 mg/dL (8.5-10.1); CREATININE 3.19 mg/dL (0.70-1.30); TOTAL PROTEIN 6.6 g/dL (6.4-8.2)
[2018-10-31 06:57] LABS: BASOPHILS % (AUTO) 0 % (0.2-1.0); HEMATOCRIT 24.8 % (42.0-54.0); LYMPHOCYTES # (AUTO) 0.3 X10^3/uL (1.3-2.9); LYMPHOCYTES % (AUTO) 19.5 % (21.0-51.0); MEAN CORPUSCULAR HEMOGLOBIN 30.6 pg (27.0-34.0); MEAN CORPUSCULAR HGB CONC 34.7 g/dL (33.0-35.0); MEAN CORPUSCULAR VOLUME 88.1 fL (80.0-100.0); MONOCYTES # (AUTO) 1.1 x10^3/uL (0.3-0.8); MONOCYTES % (AUTO) 66.6 % (0.0-13.0); NEUTROPHILS % (AUTO) 13.9 % (42.0-75.0); RED BLOOD COUNT 2.82 X10^6/uL (4.7-6.0); RED CELL DISTRIBUTION WIDTH 15.7 % (11.6-16.5)
[2018-10-31 07:06] LABS: PLATELET COUNT 7 X10^3/uL (150.0-450.0); WHITE BLOOD COUNT 1.7 X10^3/uL (3.6-10.0)
[2018-10-31 07:50] LABS: BAND NEUTROPHILS % 6 % (0-10); MYELOCYTES % 4; PLATELET MORPHOLOGY COMMENT NORMAL (NORMAL)
[2018-10-31 07:52] LABS: ANISOCYTOSIS SLIGHT; HYPOCHROMASIA SLIGHT
[2018-10-31] MEDS: DUONEB 0.5 MG/3 MG NEB SCH (08:44)
[2018-10-31] MEDS: TOPROL XL PO SCH (09:33)
--- NOTE | 2018-10-31 09:36 | RAD ---
HISTORY: Shortness of breath, pancytopenia. Prior history of leukemia and bladder cancer. Study: Single-view chest Comparison: 10/30/2018. Findings: There are again changes of coronary artery bypass surgery with median sternotomy sutures, metallic sutures and metallic markers indicating coronary artery bypass grafts. The trachea is midline. Heart size is normal. There are mixed interstitial and alveolar infiltrates bilaterally with a changing pattern. While there is some improvement in aeration in the right lower lobe, there is increased density in the left lower lobe. Findings may represent pneumonia or edema. Pulmonary vascularity appears normal. Small left pleural effusion is not reliably excluded. No pneumothorax is seen. Osseous structures are intact. IMPRESSION: Changing pattern of mixed alveolar and interstitial densities involving both lungs as noted above. No significant overall improvement is seen. Reported By:
[2018-10-31] MEDS: K-DUR TAB 20 MEQ PO SCH (09:37)
[2018-10-31] MEDS ORDERED: PROCRIT or EPOGEN SC ONE (09:47)
[2018-10-31] MEDS ORDERED: NS 1000 ML 1,000 ML ONE (09:53)
[2018-10-31] MEDS: ALBUMIN HUMAN 25%- 100 ML 100 ML IV SCH (10:03)
[2018-10-31] MEDS: NS 1000 ML 1,000 ML IV SCH (10:04)
[2018-10-31] MEDS: PROTONIX INJ 40 MG VIAL IVP SCH (10:06)
[2018-10-31] MEDS: TAB-A-VITE PO SCH (10:28)
[2018-10-31] MEDS ORDERED: DULCOLAX SUPPOSITORY 10 MG RECTAL ONE (12:00)
[2018-10-31] MEDS: XOPENEX 1.25 MG/3 ML NEBULE NEB SCH ×2 (12:15→17:09)
[2018-10-31] MEDS: TYLENOL SUPP 650 MG PR PRN ×2 (16:19→20:30)
[2018-10-31] MEDS ORDERED: ALBUMIN HUMAN 25%- 100 ML 100 ML IV ONE (17:00)
--- NOTE | 2018-10-31 20:07 | PCM.PROG ---
Progress Note - Progress Note for Day of Date of Exam: 10/31/18 - Subjective Subjective: WAS ADMITTED FOR PANCYTOPENIA, GENERALIZED WEAKNESS, ANOREXIA, AND ANEMIA. TODAY, HE IS ALERT AND ORIENTED, LYING IN BED ON MORNING ROUNDS. HE CONTINUES WITH GENERALIZED WEAKNESS AND DECREASED APPETITE. HE HAS A HISTORY OF BLADDER CANCER AND LEUKEMIA. HE HAS RECEIVED TWO UNITS OF PACKED RED BLOOD CELLS AND TWO SUPERPACKS OF PLATELETS SINCE ADMISSION. HIS VITALS THIS MORNING ARE 102.4-661-93-100%VM-132/71. LABS WERE OBTAINED. ABNORMAL LAB VALUES INCLUDE THE FOLLOWING: WBC 1.6, RBC 2.71, HGB 8.3, HCT 23.8, BUN 68, CREATININE 2.02, GLUCOSE 147, CALCIUM 8.2, MAGNESIUM 1.6, TOTAL BILI 1.40, AST 39, ALK PHOS 162, ALBUMIN 2.3, GLOBULIN 4.7. WE OBTAINED A CHEST XRAY TODAY. IT REVEALED: New interstitial infiltrates left upper lobe mixed interstitial alveolar infiltrate right lower lobe differential includes pulmonary edema versus pneumonia. These are new from the prior chest film of 12/19/2015. Status post CABG surgery but heart size is normal and vascularity is normal and no pleural effusions are observed. TODAY, WE WILL TRANSFUSE TWO ADDITIONAL UNITS OF PACKED RED BLOOD CE LLS, ADD ZOSYN, OBTAIN BLOOD CULTURES, AND ENFORCE STRICT REVERSE PRECAUTIONS. WE WILL MONITOR HIS HEMOGLOBIN AND HEMATOCRIT. OTHERWISE, WE WILL FOLLOW UP WITH AM LABS AND CONTINUE TO MONITOR. - Past Medical Family Social History Past Med/Fam/Surg Hx: No changes since H&P Allergies: Allergies No Known Drug Allergies [NKDA] Allergy (Verified 12/01/17 10:33) - Review of Systems ROS: No change since H&P - Vital Signs and I&O's Vital Signs: Temperature 102 F Pulse Rate [Apical] 111 Pulse Rate [Left Radial] 90 Pulse Rate 114 Respiratory Rate 21 Blood Pressure [Left Arm] 140/74 Blood Pressure [Right Arm] 104/52 Blood Pressure 125/60 O2 Sat by Pulse Oximetry 100 Intake and Output: Intake & Output 10/29/18 10/30/18 10/31/18 11/01/18 11:59 11:59 11:59 11:59 Intake Total 907 / 907 2320 / 2320 1740 / 1740 428 / 428 Output Total 650 / 650 1850 / 1850 600 / 600 55 / 55 Balance 257 / 257 470 / 470 1140 / 1140 373 / 373 - Physical Exam Oriented: Unable to test Eyes: Normal Ear: Normal Nose: Normal Throat: Normal Respiratory: Generalized, Diminished Cardiovascular: Normal : Normal Auscultation: Bowel Sounds: Normal Palpation: Normal Tenderness: Normal Skin: Decreased [place], Bruising Musculoskeletal: Normal Psychiatric: Normal Mood Description: Calm Affect: Normal Speech Pattern: Aphasic - Laboratory and Diagnostics Result Diagrams: 10/31/18 05:47 10/31/18 05:47 Labs: Laboratory WBC 1.7 X10^3/uL (3.6-10.0) L* 10/31/18 05:47 RBC 2.82 X10^6/uL (4.7-6.0) L 10/31/18 05:47 Hgb 8.6 g/dL (13.5-18.0) L 10/31/18 05:47 Hct 24.8 % (42.0-54.0) L 10/31/18 05:47 MCV 88.1 fL (80.0-100.0) 10/31/18 05:47 MCH 30.6 pg (27.0-34.0) 10/31/18 05:47 MCHC 34.7 g/dL (33.0-35.0) 10/31/18 05:47 RDW 15.7 % (11.6-16.5) 10/31/18 05:47 Plt Count 7 X10^3/uL (150.0-450.0) L* 10/31/18 05:47 Plt Count Comment Decreased (ADEQUATE) 10/31/18 05:47 MPV 10.0 fL (7.4-11.0) 10/31/18 05:47 Neut % (Auto) 13.9 % (42.0-75.0) L 10/31/18 05:47 Lymph % (Auto) 19.5 % (21.0-51.0) L 10/31/18 05:47 [place] % (Auto) 66.6 % (0.0-13.0) H 10/31/18 05:47 Eos % (Auto) 0.0 % (0.9-2.9) L 10/31/18 05:47 Baso % (Auto) 0 % (0.2-1.0) L 10/31/18 05:47 Neut # (Auto) 0.2 x10^3/uL (2.2-4.8) L 10/31/18 05:47 Lymph # (Auto) 0.3 X10^3/uL (1.3-2.9) L 10/31/18 05:47 [place] # (Auto) 1.1 x10^3/uL (0.3-0.8) H 10/31/18 05:47 Eos # (Auto) 0.0 x10^3/uL (0.0-0.2) 10/31/18 05:47 Baso # (Auto) 0.0 X10^3/uL (0.0-0.1) 10/31/18 05:47 Absolute Nucleated RBC 0.3 /100WBC 10/31/18 05:47 Total Counted 50 10/31/18 05:47 Neutrophils % (Manual) 18 % (39-76) L 10/31/18 05:47 Band Neutrophils % 6 % (0-10) 10/31/18 05:47 Lymphocytes % (Manual) 36 % (13-43) 10/31/18 05:47 Monocytes % (Manual) 36 % (4-9) H 10/31/18 05:47 Myelocytes % 4 10/31/18 05:47 Plt Morphology Comment Normal (NORMAL) 10/31/18 05:47 RBC Morphology Abnormal (NORMAL) 10/31/18 05:47 Dimorphic RBCs Noted 10/30/18 05:35 Hypochromasia Slight A 10/31/18 05:47 Anisocytosis Slight A 10/31/18 05:47 Sodium 137 mmol/L (136-145) 10/31/18 05:47 Corrected Sodium 138 mmol/L (136-145) 10/31/18 05:47 Potassium 4.7 mmol/L (3.5-5.1) 10/31/18 05:47 Chloride 103 mmol/L (98-107) 10/31/18 05:47 Carbon Dioxide 20.7 mmol/L (21-32) L 10/31/18 05:47 BUN 94 mg/dL (7-18) H 10/31/18 05:47 Creatinine 3.19 mg/dL (0.70-1.30) H 10/31/18 05:47 Est GFR (MDRD) Af Amer 24 (>60) L 10/31/18 05:47 Est GFR (MDRD) Non-Af 20 (>60) L 10/31/18 05:47 Glucose 121 mg/dL (65-99) H 10/31/18 05:47 POC Glucose (mg/dL) 128 mg/dL (65-99) H 10/31/18 08:24 Calcium 8.7 mg/dL (8.5-10.1) 10/31/18 05:47 Corrected Calcium 10.1 mg/dL (8.5-10.1) 10/31/18 05:47 Phosphorus 2.8 mg/dL (2.6-4.7) 10/29/18 12:16 Magnesium 1.6 mg/dL (1.7-2.9) L 10/30/18 05:35 Total Bilirubin 1.70 mg/dL (0.2-1.0) H 10/31/18 05:47 AST 23 Units/L (15-37) 10/31/18 05:47 ALT 36 Units/L (12-78) 10/31/18 05:47 Alkaline Phosphatase 145 Units/L (46-116) H 10/31/18 05:47 Total Protein 6.6 g/dL (6.4-8.2) 10/31/18 05:47 Albumin 2.3 g/dL (3.4-5.0) L 10/31/18 05:47 Globulin 4.3 g/dL (2.5-4.5) 10/31/18 05:47 Albumin/Globulin Ratio 0.5 Ratio (1.1-2.1) L 10/31/18 05:47 Prealbumin 9.7 mg/dL (18-35.7) L 10/30/18 05:35 Triglycerides 78 mg/dL (0-150) 10/29/18 12:16 Specimen Type Catherized urine 10/30/18 23:00 Urine Color Pale yellow (YELLOW) 10/30/18 23:00 Urine Appearance Clear (CLEAR) 10/30/18 23:00 Urine pH 5.0 (5.0 - 8.0) 10/30/18 23:00 Ur Specific [place] 1.010 (1.000-1.030) 10/30/18 23:00 Urine Protein 3+ (NEGATIVE) 10/30/18 23:00 Urine Glucose (UA) Negative (NEGATIVE) 10/30/18 23:00 Urine Ketones Negative (NEGATIVE) 10/30/18 23:00 Urine Occult Blood 4+ (NEGATIVE) 10/30/18 23:00 Urine Nitrite Negative (NEGATIVE) 10/30/18 23:00 Urine Bilirubin Negative (NEGATIVE) 10/30/18 23:00 Urine Urobilinogen Normal (NORMAL) 10/30/18 23:00 Ur Leukocyte Esterase Negative (NEGATIVE) 10/30/18 23:00 Urine RBC 30-50 /HPF (NONE SEEN) 10/30/18 23:00 Urine WBC 0-2 /HPF (NONE SEEN) 10/30/18 23:00 Ur Squamous Epith Cells Negative /HPF (NEGATIVE) 10/30/18 23:00 Amorphous Sediment Trace /HPF (NEGATIVE) 10/30/18 23:00 Urine Bacteria Negative /HPF (NEGATIVE) 10/30/18 23:00 Hyaline Casts Few /LPF (NEGATIVE) 10/30/18 23:00 Granular Casts Few /LPF (NEGATIVE) 10/30/18 23:00 Urine Yeast Moderate /HPF (NEGATIVE) 10/30/18 23:00 Ur Culture Indicated? No/not indicated 10/30/18 23:00 Blood Type O POSITIVE 10/30/18 23:00 Antibody Screen Negative 10/28/18 22:20 Crossmatch See Detail 10/28/18 22:20 Tx React Prelim Eval No evidence of htr 10/30/18 23:00 Tx React Symptoms Chills,sob 10/30/18 23:00 - Plan (1) Pancytopenia Status: Acute Plan: TRANSFUSE 2 UNITS PRBC, REVERSE PRECAUTIONS, CONTINUE TO MONITOR (2) Pneumonia Status: Acute Qualifiers: Pneumonia type: due to unspecified organism Laterality: bilateral Lung lo cation: unspecified part of lung Qualified Code(s): J18.9 - Pneumonia, unspecified organism Plan: FORTAZ IV, LEVAQUIN, RESPIRATORY TX, SUPPLEMENTAL OXYGEN, CONTINUE TO MONITOR (3) Anemia Status: Acute Qualifiers: Anemia type: unspecified type Qualified Code(s): D64.9 - Anemia, unspecified Plan: TRANSFUSE 2 UNITS PRBC, CONTINUE TO MONITOR (4) CHF (congestive heart failure) Status: Acute Qualifiers: Heart failure type: unspecified Heart failure chronicity: acute on chronic Qualified Code(s): I50.9 - Heart failure, unspecified (5) Weakness Status: Acute (6) Anorexia Status: Acute Plan: TPN, ALBUMIN 25% IV DAILY, CONTINUE TO MONITOR
[2018-10-31] MEDS: LEVAQUIN PREMIX IV 250 MG 250 MG/50 ML BAG IV SCH (20:38)
[2018-11-01] MEDS: XOPENEX 1.25 MG/3 ML NEBULE NEB SCH ×2 (00:39→05:21)
[2018-11-01] MEDS: MORPHINE SULFATE INJ 2 MG INJ IVP PRN ×3 (04:09→07:05)
[2018-11-01] MEDS: NS 1000 ML 1,000 ML IV SCH ×2 (04:10→17:59)
[2018-11-01] MEDS: ZOSYN VIAL 2.25 GRAMS 2.25 G in NS 100 ML IV + SPIKE MINIBAG* 100 ML IV SCH (05:52)
[2018-11-01 06:05] VITALS: BMI 30.8
--- NOTE | 2018-11-01 06:48 | RAD ---
HISTORY: Shortness of breath, pancytopenia, tachycardia Study: Chest AP portable Comparison: 10/31/2018 Findings: The patient is status post median sternotomy and CABG. The heart is upper limits normal in size. No congestive heart failure is noted. The aorta is ectatic. Diffuse interstitial lung changes are stable when compared with the prior examination. Alveolar infiltrate remains in the right lower lobe not significantly changed from the prior examination. No alveolar infiltrates remain in the left lower lobe. Bony thorax is unremarkable. IMPRESSION: No significant change from the prior examination Reported By:
[2018-11-01 06:53] LABS: ALBUMIN 2.5 g/dL (3.4-5.0); COR CA(FOR HYPOALB) 10.2 mg/dL (8.5-10.1); CREATININE 4.66 mg/dL (0.70-1.30); TOTAL PROTEIN 6.7 g/dL (6.4-8.2)
[2018-11-01 06:57] LABS: BASOPHILS % (AUTO) 0 % (0.2-1.0); EOSINOPHILS % (AUTO) 0.1 % (0.9-2.9); HEMATOCRIT 24.8 % (42.0-54.0); HEMOGLOBIN 8.5 g/dL (13.5-18.0); LYMPHOCYTES # (AUTO) 0.4 X10^3/uL (1.3-2.9); LYMPHOCYTES % (AUTO) 18.5 % (21.0-51.0); MEAN CORPUSCULAR HEMOGLOBIN 30.6 pg (27.0-34.0); MEAN CORPUSCULAR HGB CONC 34.4 g/dL (33.0-35.0); MEAN PLATELET VOLUME 10.8 fL (7.4-11.0); MONOCYTES # (AUTO) 1.7 x10^3/uL (0.3-0.8); MONOCYTES % (AUTO) 70.8 % (0.0-13.0); NEUTROPHILS # (AUTO) 0.3 x10^3/uL (2.2-4.8); NEUTROPHILS % (AUTO) 10.6 % (42.0-75.0); RED BLOOD COUNT 2.79 X10^6/uL (4.7-6.0); WHITE BLOOD COUNT 2.4 X10^3/uL (3.6-10.0)
[2018-11-01 07:05] LABS: PLATELET COUNT 3 X10^3/uL (150.0-450.0)
[2018-11-01] MEDS: TOPROL XL PO SCH (08:05)
[2018-11-01] MEDS: TAB-A-VITE PO SCH (08:05)
[2018-11-01] MEDS: K-DUR TAB 20 MEQ PO SCH (08:05)
[2018-11-01] MEDS: PROTONIX INJ 40 MG VIAL IVP SCH (09:31)
[2018-11-01] MEDS: LEVAQUIN PREMIX IV 250 MG 250 MG/50 ML BAG IV SCH (09:31)
[2018-11-01] MEDS: ALBUMIN HUMAN 25%- 100 ML 100 ML IV SCH (09:31)
[2018-11-01] MEDS ORDERED: MORPHINE SULFATE PCA 30 MG IVP PRN ×3 (09:36→19:14)
[2018-11-01] MEDS ORDERED: VERSED 100 MG in NS 100 ML IV 80 ML IV PRN (09:36)
[2018-11-01 18:10] VITALS: BP 63/36
== END 2018-11-01 21:35 | disposition expired | DRG 840 ==
LOC: ICU 21:31
PROVIDERS: ADMIT Internal Medicine; ATTEND Internal Medicine
DX: R26.89 Other abnormalities of gait and mobility; C94.80 Other specified leukemias not having achieved remission; K21.9 Gastro-esophageal reflux disease without esophagitis; D61.818 Other pancytopenia; J18.8 Other pneumonia, unspecified organism; R09.2 Respiratory arrest; R13.11 Dysphagia, oral phase; D64.89 Other specified anemias; E78.2 Mixed hyperlipidemia; Z85.51 Personal history of malignant neoplasm of bladder; Z66 Do not resuscitate; R53.1 Weakness
CPT/HCPCS: 36415; 36430; 71010; 71045; 80053; 81001; 83735; 84100; 84134; 84478; 85014; 85018; 85025; 86850; 86900; 86901; 86922; 87040; 92526; 92610; 94640; 94660; 97163; 97167; A4216; A4222; A4618; A7030; B4189; C9113; P9016; P9035; P9047; J0885; J1815; J1940; J1956; J2250; J2270; J2271; J2543; J3475; J3490; J7030; J7050; J7620